=== PATIENT | female | born 1985 | race Caucasian/White ===

== ENCOUNTER 2021-06-10 15:02 | Emergency (ER) | payer SELFPAY ==
[2021-06-10 15:07] VITALS: PULSE 99; RESP 16; TEMP 37.1; O2SAT 100
--- NOTE | 2021-06-10 15:58 | ED.GENADULT ---
HPI - General Adult General Chief complaint: Ear Stated complaint: Ear Pain,Insect Bite Time Seen by Provider: 06/10/21 15:40 Source: patient Mode of arrival: ambulatory Limitations: no limitations History of Present Illness HPI narrative: Shahrzad Cadet is a 35 yo female with PMH hypothyroid who comes to [facility] with no lesion to her left inner thigh and right upper thigh along with bilateral ear pain left being worse than right. She states that lesions only on her legs have been there only for 2 days and they started is a big bubble that suddenly came up that burst and then the tissue around it became very inflamed. Ears been hurting her for the last 4 to 5 days she tried to wake her right ear because it was hurting her. She states she smokes pack cigarettes a day does not use alcohol denies use of drugs even though her general appearance would indicate that she might have history of drug use. Related Data Allergies Allergy/AdvReac Type Severity Reaction Status Date / Time No Known Allergies Allergy Verified 06/10/21 15:06 Review of Systems Review of Systems: Narrative: CONSTITUTIONAL: Denies fever, chills, sweats. EYES: Denies visual changes, redness, discharge. ENT: Denies rhinorrhea, congestion, sore throat, bilateral otalgia. CARDIOVASCULAR: Denies chest pain, palpitations, edema. RESPIRATORY: Denies dyspnea, wheezing, cough GASTROINTESTINAL: Denies abdominal pain, nausea, vomiting, diarrhea. GENITOURINARY: Denies dysuria, hematuria, abnormal discharge SKIN: 2 large lesions one on the left inner thigh the larger which is larger 1 and an abrasion looking lesion on her right upper anterior thigh NEUROLOGIC: Denies numbness, or focal weakness. PSYCHIATRIC: Denies anxiety or depression. [facility] Past Medical History Medical History Hypothyroid Family History Family History Other Hypertension Social History Social History (Updated 06/10/21 @ 16:03 by Kimber Yates CNP) Smoking packs per day: 1 Smoking cigarettes per day: 20.0 Smoking status: Current every day smoker Alcohol intake: never Comments At time of signature, I agree with nursing past medical, surgical, social and family history. There is no relevant family history pertinent to the presenting complaint. Exam Narrative: Exam Narrative: GENERAL: This is a well-nourished, well-developed patient, in moderate distress. HEAD: normocephalic, atraumatic. EYES: Sclera clear/white. Vision is grossly intact. EARS: External ears normal, auditory canals erythema and without drainage, TMs bulging. Hearing grossly intact. NOSE: External nose normal without nasal discharge, nares without redness, no rhinorrhea. THROAT: Mucous membranes moist, NECK: Neck supple, non-tender CARDIOVASCULAR: Tachycardic rate and rhythm without murmurs, gallops, or rubs. RESPIRATORY: Coarse to auscultation. Breath sounds equal bilaterally. No wheezes, rales, or rhonchi. GASTROINTESTINAL: Abdomen soft, SKIN: warm, intact with left medial thigh induration of about 15 x 11 with an open scabbed area in the center, right anterior upper thigh with an abrasion with some erythema around the abrasion measures about 2 x 3, mildly warm, indurated, not fluctuant NEURO: awake, alert, and oriented to person, place and time. There were no obvious focal neurologic abnormalities. Steady gait EXTREMITIES: Normal range of motion. BACK: Nontender without deformity Course Course Emergency Course: Patient came to [facility] with complaints of indurated areas on her legs and bilateral ear pain Started on Bactrim and Keflex, polymyxin eardrops Discussed with patient how to keep areas clean Vital Signs Vital signs: Vital Signs Temperature 98.7 F 06/10/21 15:07 Pulse Rate 99 06/10/21 15:07 Respiratory Rate 16 06/10/21 15:07 Pulse Oximetry 100 06/10/21 15:07
[2021-06-10] MEDS: cefTRIAXone 1 GM VIAL IM (16:19)
[2021-06-10] MEDS: LIDOCAINE HCL 1% LOCAL INJ 20 ML VIAL 2.1 ML IM (16:19)
[2021-06-10] MEDS: KETOROLAC (*BKC) 60 MG/2 ML VIAL 30 MG IM (16:20)
== END 2021-06-10 16:49 | disposition home or self-care (01) ==
PROVIDERS: Emergency Provider Nurse Practitioner
DX: H65.03 Acute serous otitis media, bilateral (principal); L03.116 Cellulitis of left lower limb; F17.210 Nicotine dependence, cigarettes, uncomplicated; E03.9 Hypothyroidism, unspecified
CPT/HCPCS: 96372; 99204; G0463; J0696; J1885

== ENCOUNTER 2025-04-25 12:18 | Emergency (ER) | payer BC, SELFPAY ==
--- OUTSIDE RECORDS SUMMARY | 2025-04-25 12:24 | XMS_ITS | Continuity of Care Document ---
Author Organization [facility] Address [address] [place] [address] Phone Care Team Providers Care Highway Painter Name Role Phone Cristo Toth MD Unavailable Unavailable Allergies, Adverse Reactions, Alerts Substance Reaction Status Criticality No Known Drug Allergies Active No I nformation Medications Medication Instructions Dosage Effective Dates (start - stop) Status Comments First-Hydrocortiso ne 10 % topical gel apply by Topical route once - Active 60 GRAM TUBE. TO BE USED FOR PHONOPHORESIS IN PHYSICAL THERAPY. NAPROSYN (unknown strength) Not Available - Active IBUPROFEN (unknown strength) Not Available - Active HYDROCORTISONE (unknown strength) Not Available - Active PERCOCET (unknown strength) Not Available - Active Naprosyn 500 mg tablet take 1 tablet by oral route 2 times every day with food 500 MG - No Longer Active Procedures Procedure Date Office/outpatient visit,est, mod 2014 Supplemental Report Xray Copy EMG, each extrem w/nerve conduction; com plete Nerve Conduction Studies; 5-6 5 Office consultation, low Office/outpatient visit,est, mod 2014 Supplemental Report Supplemental Report Office/outpatient visit,est, low 2014 Supplemental Report Office/outpatient visit,est, mod 2014 Supplemental Report Office/outpatient visit,est, mod 2013 Wrist Brace Titan Office/outpatient visit,est, mod 2013 Supplemental Report Wrist Brace Tital [place] Supplemental Report Office/outpatient visit,est, mod 2013 Supplemental Report Office/outpatient visit,est, low 2013 X-ray exam wrist, complete, 3+ views Aug Office consultation, moderate 4 Advance Directives Directive Yes / No Effective Date File Name No Information Encounters Encounter Description Practice Location Reason(s) For Visit Diagnoses Date Provider Providers Copied on Encounter Office/outpa tient visit,est, mod [facility], [address], [id number], [place] tel:[phone] [facility] JOINT PAIN-HAND Mar-0 3-201 5 Navneet Lemons. [address] [place] [address], [id number], [place]. tel:[phone] [facility], [address] [place] [address], [id number], [place] tel:[phone] [facility] No Information Mar-0 3-201 5 Administrative Provider. [address] [place] [address], [id number], [place]. tel:[phone] Office consultation , low [facility], [address], [id number], [place] tel:[phone] [facility] Upper arm (chief complaint) JOINT PAIN-HAND Feb-2 5-201 5 Itzel Pettit. [address] [place] [address], [id number], [place]. tel:[phone] Referring Provider: Cristo Bernabe, [address] [place] [address], [place], [address] . tel:[phone] Office/outpa tient visit,est, mod [facility], [address], [id number], [place] tel:[phone] [facility] JOINT PAIN-HAND Feb-2 5-201 5 Strecker Cristo. [address] [facility], [address], [place], [place], [id number], [place]. tel:[phone] Office/outpa tient visit,est, low [facility], [address], [place], [place], [id number], [place] tel:[phone] [facility] JOINT PAIN-HAND Feb-0 2-201 5 Strecker Cristo. [address] [facility], [facility] [address], [place], [place], [id number], [place]. tel:[phone] Office/outpa tient visit,[facility], [facility], [address] [address], [place], [place], [id number], [place] tel:[phone] [facility] JOINT PAIN-HAND Carlo-0 7-201 5 Strecker Cristo. [address] [facility] [address], [place], [place], [id number], [place]. tel:[phone] Office/outpa tient visit,est, [facility], [address] [address], [place], [place], [id number], [place] tel:[phone] [facility] JOINT PAIN-HAND Dec-1 0-201 4 Strecker Cristo. [address] [facility], [address] [address], [place], [place], [id number], [place]. tel:[phone] Office/outpa tient visit,est, [facility], [address] [address], [place], [place], [id number], [place] tel:[phone] [facility] JOINT PAIN-HAND Nov-2 1-201 4 Strecker Cristo. [address] [facility], [address] [address], [place], [place], [id number], [place]. tel:[phone] Office/outpa tient visit,est, [facility], [address] [address], [place], [place], [id number], [place] tel:[phone] [facility] JOINT PAIN-HAND Nov-0 4-201 4 Navneet Lemons. [address] [facility], [address] [address], [place], [place], [id number], [place]. tel:[phone] Office/outpa tient visit,est, low [facility], [address], [id number], [place] tel:[phone] [facility] JOINT PAIN-HAND 0 4 Navneet Lemons. [address] [facility], [address] [address], [place], [place], [id number], [place]. tel:[phone] Office consultation , moderate [facility], [address] [place] [address], [id number], [place] tel:[phone] [facility] JOINT PAIN-HAND 4 Navneet Lemons. [address] [place] [address], [id number], [place]. tel:[phone] Family History Family Member Type Diagnosis Age At Onset Problem (finding) Family history of Diabe reggie mellitus Problem (finding) Family history of strok e Problem (finding) Family history of Cance r, unknown Payers Payer name Insurance type Covered alliance party ID Authorbriana abigail(s) [employer] [id number] Social History Type Description Quantity Date Captured Comments Alcohol Use Details Unknown Caffeine Use Details Unknown Tobacco Use Status Smoking Status No Information Sex Female Chief Complaint And Reason For Visit No Information Reason For Referral Reason For Referral No Information Plan Of Treatment Date Type Action Status Referral Ordered: EMG NCS RT arm Appointment date/timeframe: 01/20/2015 ordered Referral Ordered: MRI upper extrm non joint w/o Contrast RT arm Appointment date/timeframe: 10/07/2014 ordered Referral Ordered: X-ray exam wrist, complete, 3+ views RT wrist ordered History Of Present Illness Encounter Date Complaint History Of Prese nt Illness Upper arm EMG NCS right up per extremity Functional Status Date Functional Assessmen t No Information Instructions Date Instruction Additional Infor mation No Information Assessments Type Assessment Date assessment JOINT PAIN-HAND Patient Care Teams Name Effective Dates (start - stop) Status Members No Information
--- OUTSIDE RECORDS SUMMARY | 2025-04-25 12:24 | XMS_ITS | Patient Health Record ---
Author Organization [facility] Address [address] [place] [address] Care Team Providers Care Transfer Engineer Name Role Phone DavidHazel Primary Care Provider Fer Toña Unavailable [phone] Claire Palmer Unavailable [phone] Lillian Ken Unavailable [phone] ColtenClaire stewart Unavailable [phone] Allergies Allergen (clinical drug ingredient) Drug/Non Drug Allergy documented on EMR Reaction Allergy Type Onset Date Status No Known Drug Allergy Unknown Drug Allergy Active Results Component Value Reference Range Notes 12 Panel Urine Drug Screen Reviewed date:01/13/2025 01:58:28 PM Interpretation: Performing Lab: Notes/Report: THC neg FRANCHESCA neg MOP (OPI) neg AMP neg MET neg BAR neg BZO neg MDMA neg MTD neg OXY POS PCP neg BUP POS Hepatitis C Virus Antibody w /Rflx to Quantitative Real-time PCR ([id number]) Reviewed date:01/18/2025 06:05:25 PM Interpretation: Performing Lab:[email or web address], [address] [facility], Phone - [phone], Director - [facility] Notes/Report: HCV Ab Non Reactive Non Reactive Interpretation: Not infected with HCV unless early or acute infection is suspected (which may be delayed in an immunocompromised individual), or other evidence exists to indicate HCV infection. QuantiFERON-TB Gold Plus ([id number]) Reviewed date:01/18/2025 06:05:25 PM Interpretation: Performing Lab:[email or web address], [address] [facility], Phone - [phone], Director - [facility]DA[facility] Notes/Report: QuantiFERON Incubation Incubation performed. QuantiFERON-TB Gold Plus Negative Negative No response to M tuberculosis antigens detected. Infection with M tuberculosis is unlikely, but high risk individuals should be considered for additional testing (ATS/IDSA/CDC Clinical Practice Guidelines, 2017). The reference range is an Antigen minus Nil result of <0.35 IU/mL. Chemiluminescence immunoassay methodology QuantiFERON Criteria QuantiFERON-TB Gold Plus is a qualitative indirect test for M tuberculosis infection (including disease) and is intended for use in conjunction with risk assessment, radiography, and other medical and diagnostic evaluations. The QuantiFERON-TB Gold Plus result is determined by subtracting the Nil value from either TB antigen (Ag) value. The Mitogen tube serves as a control for the test. QuantiFERON TB1 Ag Value 0.06 QuantiFERON TB2 Ag Value 0.07 QuantiFERON Nil Value 0.01 QuantiFERON Mitogen Value >10.00 12 Panel Urine Drug Screen Reviewed date:01/29/2025 10:52:41 AM Interpretation: Performing Lab: Notes/Report: THC neg FRANCHESCA neg MOP (OPI) neg AMP neg MET neg BAR neg BZO neg MDMA neg MTD neg OXY neg PCP neg BUP POS Test, Urine Reviewed date:01/13/2025 01:58:21 PM Interpretation: Performing Lab: Notes/Report: Test, Urine Neg Negative - Negative Breathalyzer Reviewed date:01/13/2025 01:58:10 PM Interpretation: Performing Lab: Notes/Report: JORDANA 0.00 CBC With Differential/Platel et* Reviewed date:01/28/2025 03:42:01 PM Interpretation: Performing Lab:[facility], [address] [facility], [place], Phone - [phone], Director - Evan Notes/Report: WBC 7.9 3.4-10.8 x10E3/uL RBC 4.70 3.77-5.28 x10E6/uL Hemoglobin 12.7 11.1-15.9 g/dL Hematocrit 39.1 34.0-46.6 % MCV 83 79-97 fL MCH 27.0 26.6-33.0 pg MCHC 32.5 31.5-35.7 g/dL RDW 14.1 11.7-15.4 % Platelets 393 150-450 x10E3/uL Neutrophils 65 Not Estab. % Lymphs 25 Not Estab. % Monocytes 6 Not Estab. % Eos 3 Not Estab. % Basos 1 Not Estab. % Neutrophils (Absolute) 5.2 1.4-7.0 x10E3/uL Lymphs (Absolute) 2.0 0.7-3.1 x10E3/uL Monocytes(Absolute) 0.5 0.1-0.9 x10E3/uL Eos (Absolute) 0.2 0.0-0.4 x10E3/uL Baso (Absolute) 0.1 0.0-0.2 x10E3/uL Immature Granulocytes 0 Not Estab. % Immature Grans (Abs) 0.0 0.0-0.1 x10E3/uL CMP 14 Comprehensive Metabol ic Panel* Reviewed date:01/28/2025 03:42:01 PM Interpretation: Performing Lab:[facility] [address] [facility], Phone - [phone], Director - [facility] Notes/Report: Glucose 83 70-99 mg/dL BUN 16 6-24 mg/dL Creatinine 0.68 0.57-1.00 mg/dL eGFR 112 >59 mL/min/1.73 BUN/Creatinine Ratio 24 9-23 Sodium 142 134-144 mmol/L Potassium 4.2 3.5-5.2 mmol/L Chloride 105 96-106 mmol/L Carbon Dioxide, Total 24 20-29 mmol/L Calcium 9.3 8.7-10.2 mg/dL Protein, Total 6.4 6.0-8.5 g/dL Albumin 3.9 3.9-4.9 g/dL Globulin, Total 2.5 1.5-4.5 g/dL Bilirubin, Total 0.2 0.0-1.2 mg/dL Alkaline Phosphatase 129 44-121 IU/L AST (SGOT) 23 0-40 IU/L ALT (SGPT) 46 0-32 IU/L Hemoglobin A1c* Reviewed date:01/28/2025 03:42:02 PM Interpretation: Performing Lab:[facility] [address] [facility], Phone - [phone], Director - [facility] Notes/Report: Hemoglobin A1c 5.6 4.8-5.6 % . Prediabetes: 5.7 - 6.4 Diabetes: >6.4 Glycemic control for adults with diabetes: <7.0 TSH Rfx on Abnormal to Free T4 Reviewed date:01/28/2025 03:42:02 PM Interpretation: Performing Lab:[address], Phone - [phone], Director - [facility] Notes/Report: TSH 4.040 0.450-4.500 uIU/mL Lipid Panel* Reviewed date:01/28/2025 03:42:02 PM Interpretation: Performing Lab:[address], Phone - [phone], Director - [facility] Notes/Report: Cholesterol, Total 197 100-199 mg/dL Triglycerides 100 0-149 mg/dL HDL Cholesterol 65 >39 mg/dL VLDL Cholesterol Gilbert 18 5-40 mg/dL LDL Chol Calc (NIH) 114 0-99 mg/dL Rapid Plasma Reagin (RPR) Te st With Reflex to Quantitative RPR and Confirmatory Treponema pallidum Antibodies Reviewed date:01/28/2025 03:42:02 PM Interpretation: Performing Lab:[facility], Phone - [phone], Director - [facility] Notes/Report: RPR Non Reactive Non Reactive HIV Screen *HIV 1, 2 Ab, p24 Ag ([id number]) Reviewed date:01/28/2025 03:42:02 PM Interpretation: Performing Lab:[address], Phone - [phone], Director - [facility] Notes/Report: HIV Ab/p24 Ag Screen Non Reactive Non Reactive HIV-1/HIV-2 antibodies and HIV-1 p24 antigen were NOT detected. There is no laboratory evidence of HIV infection. HIV Negative Reason For Referral No Information Medications Medication SIG (Take, Route, Frequency, Duration) Notes Start Date End Date Status Buprenorphine HCl-Naloxone HCl 8-2 MG 2 tablets under the tongue and allow to dissolve Sublingual twice a day 01/29/2025 Active Ibuprofen 400 MG 1 tablet with food or milk as needed Orally Three times a day Active hydrOXYzine HCl 50 MG 1 tablet as needed Orally Once a day Active Escitalopram Oxalate 10 MG 1 tablet Orally Once a day for 30 days discontinuing Wellbutrin 02/03/2025 Active Preparation H 0.25-14-74.9 % as directed Rectal Twice daily for 14 days on unit, may substitute 02/05/2025 Active Pantoprazole Sodium 40 MG 1 tablet 1/2 to 1 hour before morning meal Orally Once a day Not-Taking traZODone HCl 50 MG 1 tablet at bedtime as needed Orally Once a day for 14 days Active Social History Tobacco Use: Social History Observation Description Date Details (start date - stop date) Current Smoker NA - NA Sex Assigned At : Social History Observation Description Sex Assigned At Female PRAPARE Question Answer Notes Date Completed/Updated: 01/13/2025 What is your current housing situation? I do not have housing (staying with others, in a hotel, in a snf, living outside on the street, on a beach, or in a park) Are you worried about losing your housing? Yes What is the highest level of school that you have finished? More than high school What is your current work situation? Unemployed and seeking work In the past year, have you o r any family members you live with been unable to get any of the following when it was really needed? Check all that apply Food,Clothing,Utilities,Phone Has lack of transportation k ept you from medical appointments, meetings, work or from getting things needed for daily living? Yes, it has kept me from medical appointments or from getting my medications,Yes, it has kept me from non-medical meetings, appointments, work, or getting things needed for daily living How often do you see or talk to people that you care about and feel close to? (For example: talking to friends on the phone, visiting friends or family, going to pentecostal or club meetings) More than 5 times a week How stressed are you? Stress is when someone feels tense, nervous, anxious, or can\t sleep at night because their mind is troubled Very much In the past year have you sp ent more than 2 nights in a row in a skilled nursing, alf, longterm center, or juvenile correctional facility? Yes Are you a refugee? I choose not to answer this q uestion What country are you from? I choose not to answe r this question Do you feel physically and e motionally safe where you currently live? Yes In the past year, have you b een afraid of your partner or ex-partner? No PRAPARE Score: 14 Enabling Services Provided? 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), inattentive type (F90.0) 01/14/20 25 Active confirmed Problem Major depressive disorder (318242625) MDD (major depressive disorder) (F32.9) 01/14/20 25 Active confirmed Problem Tobacco use (047497018) Tobacco use disorder (F17.200) Active confirmed Problem Opioid use disorder (4868325527) Opioid use disorder (F11.99) 01/14/20 25 Active confirmed Vital Signs Heart Rate 62 /min 02/05/2025 Temperature 98.2 degrees Fahrenheit 02/05/2025 Respiratory Rate 16 /min 02/05/2025 Blood pressure diastolic 58 mm Hg 02/05/2025 Oximetry 99 % 02/05/2025 Height 68 in 02/05/2025 Blood pressure systolic 94 mm Hg 02/05/2025 Weight 138.8 lbs 02/05/2025 BMI 21.1 kg/m2 02/05/2025 Encounters Encounter Location Date Provider Diagnosis [facility] [address] [place] [address] 01/27/2025 Hazel Hernandez Establishing care with new doctor, encounter for Z71.89 ; Screening for deficiency anemia Z13.0 ; Screening for metabolic disorder Z13.228 ; Screening for diabetes mellitus Z13.1 ; Screening for thyroid disorder Z13.29 ; Screening for hyperlipidemia Z13.220 and Exposure to potential infection Z20.9 [facility] [address] [place] [address] 01/13/2025 Hazel Hernandez Opioid use disorder F11.99 ; Adult general medical exam Z00.00 ; Exposure to potential infection Z20.9 and Nicotine dependence, unspecified, uncomplicated F17.200 [facility] [address] [place] [address] 01/13/2025 Claire Abel Opioid use disorder F11.99 and Depression F32.[address] [address] 01/14/2025 Lillian Ken MDD (major depressiv e disorder) F32.9 ; ADHD (attention deficit hyperactivity disorder), inattentive type F90.0 ; Opioid use disorder F11.99 ; Nicotine dependence, unspecified, uncomplicated F17.200 and Stimulant use disorder F15.90 [place] [address] [facility] [place] [address] 01/15/2025 Toña Monroe Opioid use disorder F11.99 and Tobacco use disorder F17.200 [place] [address] [facility] [place] [address] 01/29/2025 Toña Monroe Nicotine dependence, unspecified, uncomplicated F17.200 ; Opioid use disorder F11.99 and Insomnia G47.[address] [address] 02/03/2025 Lillian Ken MDD (major depressiv e disorder) F32.9 ; ADHD (attention deficit hyperactivity disorder), inattentive type F90.0 ; Opioid use disorder F11.99 ; Nicotine dependence, unspecified, uncomplicated F17.200 and Stimulant use disorder F15.90 [place] [address] [place] [address] 02/05/2025 Hazel Hernandez Nicotine dependence, unspecified, uncomplicated F17.200 and Rectal bleeding K62.5 [place] [address] [place] [address] 01/15/2025 Toña Monroe [address] [place] [address] 01/28/2025 Hazel Hernandez [address] [address] 01/30/2025 Lillian Ken [place] [address] [place] [address] 01/30/2025 Claire Palmer Assessments Encounter Date Diagnosis (ICD Code) Assessment Notes Treatment Notes Treatment Clinical Notes Section Notes 01/13/2025 Adult general medical exam (ICD-10 - Z00.00) 01/13/2025 Opioid use disorder (ICD-10 - F11.99) 01/13/2025 Depression (ICD-10 - F32.9) 01/13/2025 Opioid use disorder (ICD-10 - F11.99) 01/14/2025 MDD (major depressive disorder) (ICD-10 - F32.9) 01/15/2025 Tobacco use disorder (ICD-10 - F17.200) 01/15/2025 Opioid use disorder (ICD-10 - F11.99) Client received 30 day prescription of medication as above on 01/09/2025 from PCP, Aaron Mccabe. Not in need of refill at this time. To continue taking medication as prescribed. 01/27/2025 Establishing care with new doctor, encounter for (ICD-10 - Z71.89) 01/27/2025 Screening for deficiency anemia (ICD-10 - Z13.0) 01/29/2025 Nicotine dependence, unspecified, uncomplicated (ICD-10 - F17.200) 01/29/2025 Opioid use disorder (ICD-10 - F11.99) 02/03/2025 ADHD (attention deficit hyperactivity disorder), inattentive type (ICD-10 - F90.0) 02/03/2025 MDD (major depressive disorder) (ICD-10 - F32.9) 02/05/2025 Nicotine dependence, unspecified, uncomplicated (ICD-10 - F17.200) 02/05/2025 Rectal bleeding (ICD-10 - K62.5) 02/03/2025 Opioid use disorder (ICD-10 - F11.99) 01/29/2025 Insomnia (ICD-10 - G47.00) 01/27/2025 Screening for metabolic disorder (ICD-10 - Z13.228) 01/14/2025 ADHD (attention deficit hyperactivity disorder), inattentive type (ICD-10 - F90.0) 01/13/2025 Exposure to potential infection (ICD-10 - Z20.9) 01/14/2025 Opioid use disorder (ICD-10 - F11.99) 01/27/2025 Screening for diabetes mellitus (ICD-10 - Z13.1) 02/03/2025 Nicotine dependence, unspecified, uncomplicated (ICD-10 - F17.200) 02/03/2025 Stimulant use disorder (ICD-10 - F15.90) Today's visit: Patient is a 39-year-old female who presents for a psychiatric follow-up over phone and is located in [place], currently on [facility] through [facility] for opioid use disorder. Previously seen on 01/14/25 and during this appt was started on bupropion XL 150 mg for depression and off label ADHD. Previous PHQ-9 score of 11, today is 24. Reports worsening depressive and anxiety sx, along with increase in interpersonal stressors. Reports hand tremors since starting Wellbutrin, will discontinue. Agreeable to trialing escitalopram for depression and anxiety. Encourage sobriety resources. Encourage individual therapy. No acute safety concerns the time of this appt, he is agreeable to treatment plan and was provided an opportunity to ask questions. May self-administer medications or be administered own oral medications per [facility] protocols. Provided informed consent with understanding of side effects, adverse effects, risks and benefits as well as alternative treatments as previously discussed and with the above recommended medications & other aspects of the treatment program. Agrees to return sooner if symptoms worsen or suicidal or homicidal ideations occur. 01/27/2025 Screening for thyroid disorder (ICD-10 - Z13.29) 01/14/2025 Nicotine dependence, unspecified, uncomplicated (ICD-10 - F17.200) 01/13/2025 Nicotine dependence, unspecified, uncomplicated (ICD-10 - F17.200) 01/14/2025 Stimulant use disorder (ICD-10 - F15.90) Today's visit: Patient is a 39-year-old female who presents for a psychiatric evaluation over Zoom and is located in [place], currently on [facility] through [facility] for opioid use disorder. PHQ-9 score of 11, MARIAH-7 score of 13, MDQ with 3 yes Patient reports significant depressive symptoms for most of her life as well as anxiety. He has a history of ADHD and trauma which could be contributors as well. She completes ASRS ADHD screening and is positive for inattentive type, family hx of ADHD and reports self-medicating. Will start patient on Wellbutrin for depression and off label use for ADHD. Discussed could potentially worsen anxiety but to monitor and discuss next appt if having any side effects. Recommend follow up in 4-6 weeks to assess response and tolerability. Recommend patient continue engaging in residential treatment for sobriety support. Encourage pt to continue following up with [facility] for individual therapy. No acute safety concerns the time of this appt, he is agreeable to treatment plan and was provided an opportunity to ask questions. May self-administer medications or be administered own oral medications per [facility] protocols. Provided informed consent with understanding of side effects, adverse effects, risks and benefits as well as alternative treatments as previously discussed and with the above recommended medications & other aspects of the treatment program. Agrees to return sooner if symptoms worsen or suicidal or homicidal ideations occur. 01/27/2025 Screening for hyperlipidemia (ICD-10 - Z13.220) 01/27/2025 Exposure to potential infection (ICD-10 - Z20.9) 01/30/2025 Other 01/13/2025 Other Continue treatment as recommended by [facility]'s [facility] staff. Encouraged patient to obtain routine medical care with patient's own primary care provider or establish as a patient at [facility] if no current primary care provider. 01/13/2025 Other Shahrzad displayed limited knowledge of her triggers and coping skills. She observed clinician presenting how to to use a four step breathing technique and positive visualization however she stated she did not feel these would be helpful. Clinician provided Depression Treatment options educational hand out and encouraged Shahrzad to utilize her time on the unit to explore safe and healthing coping skills. 01/15/2025 Other Patient agrees to take medication as prescribed. Discussed medication side effects, adverse effects, risks, benefits, as well as interactions. Encouraged non-use of opioids. Has naloxone. Recommended participation in recovery groups and/or counseling services. May contact office with questions or concerns. Patient may self-administe r their own medications or may self-administe r their own oral medications per [facility] Protocol. 01/29/2025 Other Discussed medication side effects, adverse effects, risks, benefits, as well as interactions. Encouraged non-use of alcohol, methamphetamines , or other illicit substances. Recommended participation in recovery groups/counselin g services. Agrees to contact office with questions or concerns. Patient may self-administe r their own medications or may self-administe r their own oral medications per [facility] Protocol. 02/05/2025 Other Patient may self-administe r their own medications or may self-administe r their own oral medications per [facility] Protocol. 01/30/2025 Other PRAPARE Assessment documented in Shahrzad's chart. Shahrzad will be connected with resources while on the CRU when appropriate. Plan Of Treatment No Information Insurance Providers Payer Name Payer Address Payer Phone Subscriber Number Group Number Insured Name Patient Relationship to Insured Coverage Start Date Coverage End Date [facility] Family Health Plan [address] [place] [phone] [id number] 3 Shahrzad Cadet Self - patient is the insured 4 [facility] Telehealth [address] [place] [address] [phone] [id number] 3 Chichi Shahrzad Self - patient is the insured 5 [facility] PICKER BOX OPERATOR [address] [place] [address] [phone] [id number] 3 Sarahher Shahrzad Self - patient is the insured 5 Medical (General) History Medical History History ICD Code opioid use disorder attention deficit hyperactivity disorder Anxiety disorder tremors Surgical History Surgery Date(Month/Year) Tubal ligation Gallbladder Removal Umbilical Hernia Repair Hospitalization History Reason Date(Month/Year) See Surgeries
--- OUTSIDE RECORDS SUMMARY | 2025-04-25 12:24 | XMS_ITS | Continuity of Care Document ---
Author Organization [facility] Address [address] [place] [address] Phone Care Team Providers Care Asset Protection Agent Name Role Phone Juan Carlos Bolden MD Unavailable Unavailable Medications Medication Instructions Dosage Effective Dates (start - stop) Status Comments Vicodin 5 mg-500 mg tablet take 1 tablet by oral route every 4 - 6 hours as needed for pain - Active Changed to the 5/325 mg 5/500 no longer available. TTB-CAZ Advance Directives Directive Yes / No Effective Date File Name No Information Encounters Encounter Description Practice Location Reason(s) For Visit Diagnoses Date Provider Providers Copied on Encounter [facility], [address], [place], [place], [id number], tel:[phone] [facility] No Information [address]. [address], [place] [address], [place], [place], [address] . tel: [phone] [facility], [address], [place], [place], [address], tel:[phone] [facility] Musculoskeletal pain [address]. [address], [place] [address], [place], [place], [address] . tel:[phone] Referring Provider: Arpit Clemons, [address], [place], [address]. tel:[phone] Family History Family Member Type Diagnosis Age At Onset Father Problem (finding) cancer of colon Payers Payer name Insurance type Covered republican ID Authoriza tion(s) [employer] [id number] Social History Type Description Quantity Date Captured Comments Sex Female Smoking Status No Information Chief Complaint And Reason For Visit No Information Reason For Referral Reason For Referral No Information History Of Present Illness Encounter Date Complaint History Of Prese nt Illness No Information Functional Status Date Functional Assessmen t No Information Instructions Date Instruction Additional Infor mation No Information Assessments Type Assessment Date No Information Patient Care Teams Name Effective Dates (start - stop) Status Members No Information
--- OUTSIDE RECORDS SUMMARY | 2025-04-25 12:26 | XMS_ITS | Continuity of Care Document ---
Author Organization [facility] Address [address] [place] [address] Phone Care Team Providers Care Pharmacy Technician Instructor Name Role Phone Juan Carlos Bolden MD [...] Diagnoses Date Provider Providers Copied on Encounter [facility], [address], [place], [place], [address], tel:[phone] [facility] No Information [address], [place] [address], [place], [place], [address] . tel: [phone] [facility], [address], [place], [place], [address], tel:[phone] [facility] Musculoskeletal pain [address], [place] [address], [place], [place], [address] . tel:[phone] Referring Provider: Arpit Clemons, [address], [place], [address]. tel:[phone] Family History Family Member Type Diagnosis Age At Onset Father Problem (finding) cancer of colon Payers Payer name Insurance type Covered green party ID Authoriza tion(s) [employer] [id number] Social History Type Description Quantity Date Captured [...]
--- OUTSIDE RECORDS SUMMARY | 2025-04-25 12:26 | XMS_ITS | Continuity of Care Document ---
Author Organization [facility] Address [address] [place] [address] Phone Care Team Providers Care Activated Sludge Attendant Name Role Phone Cristo Toth MD Unavailable [...] mod 2013 Supplemental Report Wrist Brace Tital Bena Supplemental Report Office/outpatient visit,est, mod 2013 Supplemental Report Office/outpatient visit,est, low 2013 X-ray exam wrist, complete, 3+ views Aug Office consultation, moderate 4 Advance Directives Directive Yes / No Effective Date File Name No Information Encounters Encounter Description Practice Location Reason(s) For Visit Diagnoses Date Provider Providers Copied on Encounter Office/outpa tient visit,est, mod [facility], [address], [id number], [place] tel:[phone] [facility] JOINT PAIN-HAND Mar-0 3-201 5 Navneet Lemons. [address] [place] [address], [id number], [place]. tel:[phone] [facility], [address] [place] [address], [id number], [place] tel:[phone] [facility] No Information Mar-0 3-201 5 Administrative Provider. [address] [place] [address], [id number], [place]. tel:[phone] Office consultation , low [facility], [address], [id number], [place] tel:[phone] [facility] Upper arm (chief complaint) JOINT PAIN-HAND Feb-2 5-201 5 Itzel Pettit. [address] [place] [address], [id number], [place]. tel:[phone] Referring Provider: Cristo Bernabe, [address] [place] [address], [place], [address] . tel:[phone] Office/outpa tient visit,est, mod [facility], [address], [id number], [place] tel:[phone] [facility] JOINT PAIN-HAND Feb-2 5-201 5 Strecker Cristo. [address] [facility], [place], [place], [id number], [place]. tel:[phone] Office/outpa tient visit,est, low [facility], [address] [facility] [address], [place], [place], [id number], [place] tel:[phone] [facility] JOINT PAIN-HAND Feb-0 2-201 5 Strecker Cristo. [address] [facility], [facility] [address], [place], [place], [id number], [place]. tel:[phone] Office/outpa tient visit,[facility], [address] [address], [place], [place], [id number], [place] tel:[phone] [facility] JOINT PAIN-HAND Carlo-0 7-201 5 Strecker Cristo. [address] [facility] [place] [address], [place], [place], [id number], [place]. tel:[phone] Office/outpa tient visit,est, [facility], [address] [address], [place], [place], [id number], [place] tel:[phone] [facility] JOINT PAIN-HAND Dec-1 0-201 4 Strecker Cristo. [address] [facility], [place] [address], [place], [place], [id number], [place]. tel:[phone] Office/outpa tient visit,est, [facility], [address] [address], [place], [place], [id number], [place] tel:[phone] [facility] JOINT PAIN-HAND Nov-2 1-201 4 Strecker Cristo. [address] [facility], [place] [address], [place], [place], [id number], [place]. tel:[phone] Office/outpa tient visit,est, [facility], [address] [address], [place], [place], [id number], [place] tel:[phone] [facility] JOINT PAIN-HAND Nov-0 4-201 4 Navneet Lemons. [address] [facility], [place] [address], [place], [place], [id number], [place]. tel:[phone] Office/outpa tient visit,est, low [facility], [address], [id number], [place] tel:[phone] [facility] JOINT PAIN-HAND 0 4 Navneet Lemons. [address] [facility], [place] [address], [place], [place], [id number], [place]. tel:[phone] Office consultation , moderate [facility], [address] [place] [address], [id number], [place] tel:[phone] [facility] JOINT PAIN-HAND 4 Navneet Lemons. [address] [place] [address], [id number], [place]. tel:[phone] Family History Family Member Type Diagnosis Age At Onset Problem (finding) Family history of Diabe reggie mellitus Problem (finding) Family history of strok e Problem (finding) Family history of Cance r, unknown Payers Payer name Insurance type Covered constitution party ID Authorbriana abigail(s) [employer] [id number] Social History Type Description Quantity Date Captured [...]
[2025-04-25 12:28] VITALS: BP 116/90; PULSE 127; RESP 20; TEMP 35.7; O2SAT 100
--- NOTE | 2025-04-25 12:51 | ED_ITS ---
HPI - Skin/Abscess/Foreign Bdy General Chief complaint: Skin/Abscess/Foreign Body Stated complaint: abscess Time Seen by Provider: 04/25/25 12:51 Source: patient, RN notes reviewed and old records reviewed Mode of arrival: ambulatory Limitations: no limitations History of Present Illness HPI narrative: 39 year old female presents to [facility] care with abscess note to bilateral antecubital fossa. She reports that the right side has been painful for 5 days and the left side has bee painful for 1 days. Patient has swelling to bilateral antecubital area with right area noted to be swollen and warm to touch, left s cy with minimal swelling. Patient has visible track willett to bilateral antecubital areas and admits to shooting Fentanyl daily with last time this morning prior to arrival. Patient also states that she has a laceration from a razor blade on her left thigh above her knee from a week ago that she thinks is healing, patient states she was cutting plastic off of copper wire. Patient reports that she is homeless and lives on the [address], has wire cart she pulls along with possessions. Patient reports that she doesn't think her tetanus shot is up to date, MD complaint: laceration (upper left leg near knee 1 week old) and abscess/boil (bilateral antecubitals from shooting Fentanyl) Onset (ago): day(s) (5 days tight ar, 1 day left aem, left thigh 1 week) Tetanus up to date: no Severity: moderate Severity scale (1-10): 4 Quality: aching and other (soreness) Pain Consistency: constant Treatments prior to arrival: none Related Data Allergies Allergy/AdvReac Type Severity Reaction Status Date / Time No Known Allergies Allergy Verified 04/25/25 12:34 Review of Systems Review of Systems: CONSTITUTIONAL: Denies fever, chills, or sweats. CARDIOVASCULAR: Denies chest pain, palpitations, or edema. RESPIRATORY: Denies cough or dyspnea. GASTROINTESTINAL: Denies abdominal pain, nausea, vomiting SKIN: Reports redness and swelling. to bilateral antecubital area with some swelling of right side and warm, redness of left with minimal swelling no warmth Denies purulent drainage,from Iv drug use. has superficial laceration from one week ago to left thigh above knee caused from razor blade when she accidentally cut self when she was taking plastic off of copper wire no redness or any drainage noted. MUSCULOSKELETAL: Denies myalgia. NEUROLOGIC: Denies headache, numbness All systems reviewed & are unremarkable except as noted in HPI and below PMFSH Past Medical History Medical History Hypothyroid Family History Family History Other Hypertension Social History Social History (Updated 04/27/25 @ 11:30 by Kelsey Lamb NP) Smoking packs per day: 1 Smoking cigarettes per day: 20.0 Smoking status: Current every day smoker Tobacco type: cigarettes and e-cigarettes/vaping Alcohol intake: unknown Substance use: current Other substance usage details: Shoots Fentanyl last use today, reports has been using for 10 years Additional living arrangements comments: states homeless lives on streets Gender identity (if verbalized by the patient): Female Comments At time of signature, agree with nursing past medical, surgical, social and family history. There is no relevant family history pertinent to the presenting complaint Exam Narrative: GENERAL: chronic ill-appearing, fair-nourished, and in no acute distress disheveled. HEAD: Normocephalic, atraumatic. EYES: PERRLA and EOMI. ENT: Nares clear, no rhinorrhea or epistaxis. Mucous membranes moist.TM's normal throat pink with no swelling poor dentition NECK: Supple. no lymphadenopathy CHEST: Clear to auscultation. No respiratory distress. no acute cough noted SAO2 100% on room air HEART: Regular rate and rhythm. No murmur heard. Normal peripheral pulses. ABDOMEN: Soft, nontender, nondistended, normal active bowel sounds. EXTREMITIES: Normal range of motion. No edema. SKIN: Warm, dry. Erythema, induration, tenderness, to bilateral antecubital areas with warmth and swelling on right side with no open drainage areas noted, has been shooting Fentanyl to sites with obvious track willett noted. Patient has healing laceration to left thigh above knee from 1 week ago when she reports she accidently cut self with razor blade while trying to cut plastic off copper wire. no drainage noted reports discomfort to antecubital sites with patient presently afebrile, patient reports that she has been trying to keep areas clean. NEURO: No focal deficits. Alert and oriented x3. Course Course Emergency Course: Patient is aware of diagnosis, understands and agrees to treatment plan. Anticipatory guidance given. Patient agrees to follow-up as directed and is aware of reasons to seek care at the emergency department. Portions of this record may have been created with voice recognition software Level of Care: Express Care Visit Vital Signs Vital signs: Vital Signs Temperature 35.7 C L 04/25/25 12:28 Pulse Rate 127 H 04/25/25 12:28 Respiratory Rate 20 04/25/25 12:28 Blood Pressure 116/90 04/25/25 12:28 Pulse Oximetry 100 04/25/25 12:28 Oxygen Delivery Room Air 04/25/25 12:28 Temperature 35.7 C L 04/25/25 12:28 Pulse Rate 119 H 04/25/25 13:07 Respiratory Rate 20 04/25/25 12:28 Blood Pressure 116/90 04/25/25 12:28 Pulse Oximetry 100 04/25/25 12:28 Oxygen Delivery Room Air 04/25/25 12:28 Reviewed MDM - Skin/Abscess/Foreign Bdy MDM Narrative Medical decision making narrative: Does not appear at this time to be erythema multiforme, bullous, SJS, TEN; no evidence at this time to suggest RMSF, endocarditis or Lyme disease; patient looks well, nontoxic and is tolerating oral intake; no neurologic signs or symptoms; no headache, photophobia or neck pain; afebrile; appropriate for initial outpatient treatment; discussed the importance of follow-up, patient agrees. Patient does not have history of penetrating trauma, laceration, blunt trauma, recent surgery, immunosuppression, malignancy, obesity, alcoholism, corticosteroid use. Question cellulitis, necrotizing soft tissue infection, abscess. Differential Diagnosis Differential diagnosis: Likely abscess of skin or subcutaneous tissue, cellulitis and other (infection to antecubital fossas from IV drug use, healing laceration left thigh 1 week old.) Medical Records Attestation: I reviewed the patient's medical records. Critical Care Time Critical Care Time Critical Care Time: No Discharge Plan Discharge Clinical Impression: Abscess of antecubital fossa, IV drug abuse Abscess of skin or subcutaneous tissue Qualifiers: Site of cutaneous abscess: extremity Site of cutaneous abscess of extremity: upper extremity Laterality: right Qualified Code(s): L02.413 - Cutaneous abscess of right upper limb Patient Disposition: Home Condition: Stable Instructions: Antibiotic Form, Abscess (ED) Additional Instructions: Cleanse area of both antecubital twice daily with liquid Dial soap rinse apply mupirocin ointment twice daily watch for increasing infection--redness, swelling, drainage Ibuprofen for fever pain follow up with PCP in 7-10 days for a wound check recheck if develop fever, chills, increasing symptom Go to the ER if your symptoms become worse of if ANY new symptoms develop If your symptoms persist, change or worsen significantly before you can contact your personal physician then please, without delay, go to the emergency department for further evaluation. Follow-up with PCP in 7-10 days or sooner if needed Follow up with PCP soon in regards to your blood pressure which is elevated above threshold for referral. Blood pressure above 120/80 may indicate pre- [id number] Patient Language: Yi Prescriptions: New cephalexin 500 mg capsule 500 mg PO Q12H Qty: 20 0RF sulfamethoxazole-trimethoprim [Bactrim DS] 800-160 mg tablet 1 tablet PO Q12H Qty: 20 0RF mupirocin [Centany] 2 % ointment 1 applic topical BID Qty: 22 0RF Follow-up/Referrals: Aaron Mccabe [Other] Time of Disposition: 13:22 Quality [facility] Coma Scale Eyes: Open Verbal: Oriented and Alert Motor: Follows Commands [facility] Coma Total Score: 15
[2025-04-25 13:07] VITALS: PULSE 119
[2025-04-25] MEDS: TETANUS,DIPHTHERIA,AC PERTUSSIS ADULT (0.5 ML) BOOSTRIX IM (13:10)
== END 2025-04-25 13:30 | disposition home or self-care (01) ==
PROVIDERS: Emergency Provider Registered Nurse
DX: L02.414 Cutaneous abscess of left upper limb (principal); L02.413 Cutaneous abscess of right upper limb; T80.29XA Infection following other infusion, transfusion and therapeutic injection, initial encounter; F11.90 Opioid use, unspecified, uncomplicated; Z23 Encounter for immunization; Z59.02 Unsheltered homelessness; E03.9 Hypothyroidism, unspecified; F17.210 Nicotine dependence, cigarettes, uncomplicated; F17.290 Nicotine dependence, other tobacco product, uncomplicated
CPT/HCPCS: 90471; 90715; 99213; G0463